=== PATIENT | female | born 1960 ===

== ENCOUNTER → 2018-02-17 21:14 | Outpatient (REF) | payer OTHER, SELFPAY ==
[2018-02-17 21:36] LABS: Add Manual Diff / Slide Review SLIDE REVIEW; Basophils Percent Auto 0.9 % (0-2); Eosinophils Percent Auto 0.7 % (2-4); Hematocrit 39.8 % (36-46); Hemoglobin 13.6 g/dL (12.0-16.0); Lymphocytes Percent Auto 28.1 % (25-40); Mean Corpuscular HGB Conc 34.2 % (30-36); Mean Corpuscular Hemoglobin 37.4 PG (26-34); Mean Corpuscular Volume 109.2 fL (80-100); Monocytes Percent Auto 9.5 % (3-14); Neutrophils Absolute Auto 3100 /uL (3000-5900); Neutrophils Percent Auto 60.8 % (50-75); Platelet Count 92 X10^3/uL (150-400); Red Blood Cell Count 3.64 X10^6/uL (4.0-5.2); Red Cell Distribution Width 13.1 % (11.6-14.8); White Blood Cell Count 5.1 X10^3/uL (4.5-11.0)
[2018-02-17 21:39] LABS: Alanine Aminotransferase 48 IU/L (9-52); Albumin 4.1 g/dL (3.5-5.0); Albumin Globulin Ratio 1.2 (1.0-2.8); Alkaline Phosphatase 58 U/L (38-126); Aspartate Aminotransferase 158 IU/L (14-36); BUN Creatinine Ratio 22.5 (6-22); Bilirubin Total 2.9 mg/dL (0.2-1.3); Blood Urea Nitrogen 9 mg/dL (7-17); Calcium 9.3 mg/dL (8.4-10.2); Carbon Dioxide 20 mmol/L (22-32); Chloride 104 mmol/L (98-107); Estimated Glomerular Filt Rate > 60.0 mL/min (>60); Globulin 3.5 g/dL (1.7-4.1); Glucose 92 mg/dL (70-100); HEMOLYSIS < 15 (0-50); Potassium 3.9 mmol/L (3.4-5.1); Sodium 142 mmol/L (137-145); Total Protein 7.6 g/dL (6.3-8.2)
[2018-02-17 22:09] LABS: Thyroid Stimulating Hormone 2.26 uIU/mL (0.47-4.68)
[2018-02-17 22:10] LABS: Macrocytosis 2+
[2018-02-17 23:04] LABS: Free T3, Triiodothyronine Free 2.67 pg/mL (2.77-5.27); Free T4, Direct Thyroxine 1.31 ng/dL (0.78-2.19)
[2018-02-19 18:01] LABS: Sex Hormone Binding Globulin 70 nmol/L (14-73)
[2018-02-20 16:05] LABS: Progesterone < 0.5 ng/mL
[2018-02-21 17:33] LABS: Testosterone Free 4.3 pg/mL (0.1-6.4); Testosterone Total 40 ng/dL (2-45)
== END ==
LOC: LAB 21:14
PROVIDERS: Visit Provider Naturopath
DX: G62.89 Other specified polyneuropathies (principal); Z13.89 Encounter for screening for other disorder; E83.119 Hemochromatosis, unspecified; E03.9 Hypothyroidism, unspecified; N95.1 Menopausal and female climacteric states
CPT/HCPCS: 80053; 82672; 82728; 84144; 84270; 84402; 84403; 84439; 84443; 84481; 85025

== ENCOUNTER → 2018-03-20 22:02 | Outpatient (REF) | payer OTHER, SELFPAY ==
[2018-03-20 22:25] LABS: Add Manual Diff / Slide Review NO; Basophils Percent Auto 0.8 % (0-2); Eosinophils Percent Auto 1.3 % (2-4); Hematocrit 37.1 % (36-46); Hemoglobin 12.8 g/dL (12.0-16.0); Lymphocytes Percent Auto 42.7 % (25-40); Mean Corpuscular HGB Conc 34.5 % (30-36); Mean Corpuscular Hemoglobin 38.6 PG (26-34); Mean Corpuscular Volume 111.9 fL (80-100); Monocytes Percent Auto 10.7 % (3-14); Neutrophils Absolute Auto 1600 /uL (1500-7000); Neutrophils Percent Auto 44.5 % (50-75); Platelet Count 82 X10^3/uL (150-400); Red Blood Cell Count 3.32 X10^6/uL (4.0-5.2); Red Cell Distribution Width 14.5 % (11.6-14.8); White Blood Cell Count 3.6 X10^3/uL (4.5-11.0)
[2018-03-21 01:15] LABS: Alanine Aminotransferase 58 IU/L (9-52); Alkaline Phosphatase 63 U/L (38-126); Aspartate Aminotransferase 193 IU/L (14-36); BUN Creatinine Ratio 26.7 (6-22); Bilirubin Total 2.8 mg/dL (0.2-1.3); Blood Urea Nitrogen 8 mg/dL (7-17); C-Reactive Protein Quant 0.8 mg/dL (<1.0); Calcium 9.7 mg/dL (8.4-10.2); Carbon Dioxide 22 mmol/L (22-32); Chloride 106 mmol/L (98-107); Estimated Glomerular Filt Rate > 60.0 mL/min (>60); Glucose 89 mg/dL (70-100); HEMOLYSIS < 15 (0-50); Potassium 4.2 mmol/L (3.4-5.1); Sodium 146 mmol/L (137-145)
[2018-03-21 01:24] LABS: Macrocytosis 2+
== END ==
LOC: LAB 22:02
PROVIDERS: Visit Provider Naturopath
DX: R94.5 Abnormal results of liver function studies (principal); E83.119 Hemochromatosis, unspecified; E03.9 Hypothyroidism, unspecified; G62.89 Other specified polyneuropathies
CPT/HCPCS: 80053; 81256; 85025; 86140

== ENCOUNTER → 2018-07-02 15:33 | Outpatient (REF) | payer OTHER, SELFPAY ==
[2018-07-02 16:59] LABS: Thyroid Stimulating Hormone 4.14 uIU/mL (0.47-4.68)
[2018-07-04 16:06] LABS: Progesterone 2.8 ng/mL
[2018-07-05 20:04] LABS: Estrogen 165.4 pg/mL
== END ==
LOC: LAB 15:33
PROVIDERS: Visit Provider Naturopath
DX: N95.1 Menopausal and female climacteric states (principal); E03.9 Hypothyroidism, unspecified
CPT/HCPCS: 36415; 82672; 84144; 84402; 84403; 84439; 84443